=== PATIENT | female | born 1990 | race Two or more races ===

== ENCOUNTER 2018-02-17 19:36 | Emergency (ER) | payer SELFPAY ==
[~2018-02-17] VITALS: Ht 165.1 cm; Wt 57.0 kg
[2018-02-17] MEDS ORDERED: ACETAMINOPHEN 650MG SUPP PR ONE (20:15)
[2018-02-18] MEDS ORDERED: KETOROLAC 30MG/ML VIAL IV ONE (00:30)
[2018-02-18] MEDS ORDERED: SODIUM CHLORIDE 0.9% 500 ML IV ONE (00:30)
[2018-02-18 00:39] LABS: CHLORIDE 108 mEq/L (98-107)
[2018-02-18 00:41] LABS: BASOPHILS % 0.2 % (0.0-2.0); EOSINOPHILS % 0.3 % (0.0-5.0); HEMATOCRIT. 38.3 % (36.0-48.0); HEMOGLOBIN. 13.4 g/dL (12.0-16.0); LYMPHOCYTES % 24.6 % (20.0-50.0); MEAN PLATELET VOLUME 8.4 fl (7.4-10.4); MONOCYTES % 3.1 % (2.0-8.0); NEUTROPHILS % 71.8 % (40.0-76.0); PLATELET 169 x1000/uL (130-400); RED CELL DISTRIBUTION WIDTH 12.2 % (11.6-14.6)
[2018-02-18 01:30] VITALS: BP 103/61
== END 2018-02-18 01:35 | disposition home or self-care (01) ==
LOC: ER 19:36
DX: R51 Headache (principal)
CPT/HCPCS: 36415; 80048; 81025; 85025; 96361; 96374; 99284; J1885; J7040; Z7610

== ENCOUNTER 2024-02-17 06:30 | Emergency (ER) | payer SELFPAY ==
[~2024-02-17] VITALS: Ht 157.5 cm; Wt 62.0 kg
[2024-02-17 06:46] VITALS: BP 100/67; PULSE 63; RESP 18; TEMP 97.9; O2SAT 100
== END 2024-02-17 07:40 | disposition home or self-care (01) ==
LOC: ER 06:30
DX: J68.8 Other respiratory conditions due to chemicals, gases, fumes and vapors (principal)
CPT/HCPCS: 99281